=== PATIENT | male | born 1970 | race Caucasian/White ===

== ENCOUNTER → 2020-12-08 17:05 | Outpatient (CLI) | payer OTHER, SELFPAY ==
--- NOTE | ~2020-12-08 | MR_ITS ---
EXAMINATION: MR shoulder RT wo con DATE: 12/08/2020 18:05 INDICATION: Right shoulder pain and limited range of motion TECHNIQUE: Magnetic resonance imaging (MRI) of the right shoulder was performed without intravenous c ontrast. Sequences included axial PD-weighted FS FSE, coronal oblique PD-weighted FS FSE, coronal obl ique T2-weighted FS FSE, sagittal PD-weighted FS FSE, and sagittal T1-weighted SE. COMPARISON: None. FINDINGS: Coracoacromial arch: The acromion undersurface is curved in morphology (type II). Normal variant unfused meso acromial typ e os acromiale. There is mild marrow edema along both sides of the synchondrosis. The coracoacromial ligament is normal. There is asymmetric prominent edema and mild subarticular cystic change at the l ateral head of the clavicle. There is no marrow edema along the acromial side aside from small amount extending along the synchondrosis. The degree of edema in the lateral clavicle is disproportionate t o the otherwise minimal appearing osteoarthritis and raises the possibility of distal clavicular oste olysis. Rotator cuff: Moderate supraspinatus and mild infraspinatus tendinopathy. Small intrasubstance tear measuring 2 mm AP and 4 mm medial to lateral at the conjoined portion of the tendon and involving up to two thirds t wo thirds of the tendon thickness. The teres minor and subscapularis tendons are normal. Normal rotat or cuff muscle bulk and signal. Biceps tendon, glenoid labrum and glenohumeral cartilage: Long head of the biceps tendon is normal. Glenoid labrum is normal. Glenohumeral cartilage is normal. Fluid: Physiologic amount of fluid in the glenohumeral joint and biceps tendon sheath. No loose osteochondra l bodies. Small amount of fluid in the subacromial/subdeltoid bursa consistent with mild bursitis. Bones: Bone alignment is normal. No fracture or pathologic marrow replacing process. Mild edema underlying t he superior and middle facets of the greater tuberosity with developing mild cystic/erosive change at the footplate underlying the site of the conjoined tendon tear. IMPRESSION: 1. Moderate supraspinatus and mild infraspinatus tendinopathy with very small moderate severity parti al-thickness intrasubstance tear at the footplate of the conjoined portion of the tendon. 2. Asymmetric marrow edema and mild cystic change at the lateral head of the left clavicle which is d isproportionate to the signal changes at the acromion and relatively mild acromion clavicular osteoar thritis and which suggests the possibility of distal clavicular osteolysis which can be related to re petitive microtrauma such as related to either weight lifting or occupational. 3. Normal variant unfused meso acromial os acromiale. 4. Mild subacromial/subdeltoid bursitis. Reviewed, dictated and finalized at location A. IMPRESSION: 1. Moderate supraspinatus and mild infraspinatus tendinopathy with very small m oderate severity partial-thickness intrasubstance tear at the footplate of the conjoined portion of the tendon. 2. Asymmetric marrow edema and mild cystic change at the lateral head of the le ft clavicle which is disproportionate to the signal changes at the acromion and relatively mild acromion clavicular osteoarthritis and which suggests the poss ibility of distal clavicular osteolysis which can be related to repetitive micr otrauma such as related to either weight lifting or occupational. 3. Normal variant unfused meso acromial os acromiale. 4. Mild subacromial/subdeltoid bursitis.
== END ==
PROVIDERS: Visit Provider Orthopaedic Surgery
DX: M25.511 Pain in right shoulder (principal); M75.51 Bursitis of right shoulder
CPT/HCPCS: 73221

== ENCOUNTER 2021-05-09 12:54 | Emergency (ER) | payer OTHER, SELFPAY ==
[2021-05-09 13:03] VITALS: BP 146/88; PULSE 103; RESP 18; TEMP 36.1; O2SAT 100
--- NOTE | 2021-05-09 13:12 | ECG_ITS ---
Measurements Intervals [place] Rate: 103 P: 56 [place]: 139 QRS: 33 QRSD: 89 T: 56 QT: 328 QTc: 431 Interpretive Statements SINUS TACHYCARDIA BORDERLINE ECG Electronically Signed On 05-09-2021 14:45:22 [employer] by Qamar Kennedy D.O.
--- NOTE | 2021-05-09 17:37 | PC.NURSE ---
Pt to the desk and states I don't want to wait any longer im going to go
== END 2021-05-10 04:32 | disposition left against medical advice (07) ==
PROVIDERS: Emergency Provider Emergency Medicine; PCP Physician Assistant
DX: R06.02 Shortness of breath (principal)
CPT/HCPCS: 93005; 99199